=== PATIENT | female | born 1980 | race Caucasian/White ===

== ENCOUNTER 2016-11-16 11:02 | Emergency (ER) | payer MEDICAID ==
[2016-11-16 11:10] VITALS: TEMP 98.1; O2SAT 100
[2016-11-16 12:47] LABS: URINE BILIRUBIN NEGATIVE (NEGATIVE); URINE BLOOD 2+ (NEGATIVE); URINE COLOR Straw (YELLOW); URINE GLUCOSE (UA) NORMAL (Normal); URINE KETONE NEGATIVE (NEGATIVE); URINE LEUKOCYTE ESTERASE NEG Leu/uL (Negative); URINE PROTEIN NEGATIVE (NEGATIVE); URINE UROBILINOGEN NORMAL mg/dL (0.2-1.0); WBC URINE 2 /hpf (0-5)
[2016-11-16 12:48] LABS: RBC URINE 3 /hpf (0-3)
--- NOTE | 2016-11-16 13:04 | C.PDOC ---
History Of Present Illness 36-year-old female presents to the emergency department with complaints of suprapubic pain and dysuria x1 week. She states the pain radiates into HER vagina. Patient denies vaginal bleeding/discharge, vomiting/diarrhea, fever. Patient also denies possiblity of , has not taken test. Time Seen by Provider: 11/16/16 11:11 Chief Complaint (Nursing): Female Genitourinary History Per: Patient History/Exam Limitations: no limitations Onset/Duration Of Symptoms: Days Current Symptoms Are (Timing): Still Present Severity: Mild Past Medical History Reviewed: Historical Data, Nursing Documentation, Vital Signs Vital Signs: Last Vital Signs Temp 98.1 F 11/16/16 11:10 Pulse 74 11/16/16 14:23 Resp 20 11/16/16 14:23 BP 118/72 11/16/16 14:23 Pulse Ox 100 11/19/16 17:58 - Medical History PMH: Hyperthyroidism Family History: States: No Known Family Hx - Social History Hx Alcohol Use: No Hx Substance Use: No - Immunization History Hx Tetanus Toxoid Vaccination: No Hx Influenza Vaccination: No Hx Pneumococcal Vaccination: No Review Of Systems Except As Marked, All Systems Reviewed And Found Negative. Constitutional: Negative for: Fever, Chills Cardiovascular: Negative for: Chest Pain, Palpitations Respiratory: Negative for: Cough, Shortness of Breath Gastrointestinal: Positive for: Abdominal Pain. Negative for: Nausea, Vomiting , Diarrhea Genitourinary: Positive for: Dysuria. Negative for: Hematuria, Vaginal Discharge, Vaginal Bleeding, Pelvic Pain Musculoskeletal: Negative for: Back Pain Skin: Negative for: Rash Physical Exam - Physical Exam Appears: Well, Non-toxic, No Acute Distress Skin: Warm, Dry, No Rash Head: Normacephalic Eye(s): bilateral: Normal Inspection Oral Mucosa: Moist Neck: Normal, Normal ROM Cardiovascular: Rhythm Regular Respiratory: Normal Breath Sounds, No Rales, No Rhonchi, No Wheezing Gastrointestinal/Abdominal: Bowel Sounds, Soft, Tenderness (mild, suprapubic TTP ), No Distention, No Guarding, No Rebound Back: No CVA Tenderness Pelvic: Normal External Exam, Normal Bimanual Exam, No Vaginal Bleeding, Vaginal Discharge (mild amount thick white cottage cheese-like discharge), No Cervical Motion Tenderness, No Cervix Open, No Adnexal Tenderness, No Tender Uterus Extremity: Normal ROM Neurological/Psych: Oriented x3 ED Course And Treatment O2 Sat by Pulse Oximetry: 100 (ra) Pulse Ox Interpretation: Normal Progress Note: Urine Culture, UA and HCG ordered and reviewed. Patient treated with PO Tylenol. Reevaluation Time: 13:40 Reassessment Condition: Improved (Patient reassessed, is resting comfortably, in no current pain/distress. Pelvic exam suspicious for canidida vs BV - both Diflucan and Flagyl Rxs given to patient. Chlamydia/gonorrhea swab sent and pending. Patient instructed to follow up with wrapping checker within 1 week, and understands she should return to ED if symptoms worsen. Patient to be called by me if swab (+).) Disposition Counseled Patient/Family Regarding: Diagnosis, Need For Followup, Rx Given - Disposition Referrals: Lian Love MD [Staff Provider] - Disposition: HOME/ ROUTINE Disposition Time: 13:40 Condition: STABLE Additional Instructions: SEGUIMIENTO CON OLSON MDICO O CLNICA EN 1-2 TRIPLETT NO SEX X 1 SEMANA USE MEDICAMENTOS SEGN LO DIRIGIDO DEVUELVA A LA CHUYITA DE EMERGENCIA SI LOS SNTOMAS EMPEORARAN Prescriptions: Fluconazole [Diflucan] 150 mg PO DAILY #2 tab metroNIDAZOLE [Flagyl] 500 mg PO BID #14 tab Instructions: Vaginal Discharge (ED), Vulvovaginal Candidiasis (ED) Print Language: MOHAWK - POA Present On Arrival: None - Clinical Impression Clinical Impression: Vaginal discharge, Candidiasis, vagina - Scribe Statement The provider has reviewed the documentation as recorded by the Michell Fishman All medical record entries made by the Scribe were at my direction and personally dictated by me. I have reviewed the chart and agree that the record accurately reflects my personal performance of the history, physical exam, medical decision making, and the department course for this patient. I have also personally directed, reviewed, and agree with the discharge instructions and disposition.
[2016-11-16] MEDS ORDERED: cefTRIAXone (Rocephin) 250 mg Inj IM STA (13:19)
[2016-11-16 14:23] VITALS: BP 118/72; PULSE 74; RESP 20
== END 2016-11-16 14:23 | disposition home or self-care (01) ==
LOC: C.ER 11:02
DX: B37.3 Candidiasis of vulva and vagina (principal)
CPT/HCPCS: 81001; 84703; 87086; 87491; 87591; 96372; 99284; J0696

== ENCOUNTER 2017-03-13 09:34 | Day surgery (SDC) | payer MEDICAID ==
[2017-03-12 08:09] VITALS: BMI 21.8
[2017-03-13] MEDS ORDERED: Lactated Ringer's 1,000 ML IV ONE (12:20)
[2017-03-13] MEDS ORDERED: cefOXitin IV 2 gm in Dextrose 2 GM/50 ML BAG IVPB ONE (12:27)
[2017-03-13] MEDS ORDERED: Midazolam 2 MG/2 ML VIAL ONE (12:30)
[2017-03-13] MEDS ORDERED: Propofol 10 mg/ml Inj (20 ML) ONE (12:30)
[2017-03-13] MEDS ORDERED: Lidocaine Hydrochloride 5 ML INJ ONE (12:56)
[2017-03-13] MEDS ORDERED: HYDROmorphone 0.5 mg/0.5 ml ISec IVP PRN (13:11)
--- NOTE | 2017-03-13 13:12 | PCM.SURG1 ---
Surgeon's Initial Post Op Note - Surgeon's Notes Surgeon: Dr Phipps Epic Cadence Analyst: Rajiv Adams- Jessica Quarles Type of Anesthesia: General Endo Anesthesia Administered By: LISA Miles supervised by Dr Rosado Pre-Operative Diagnosis: Same as above,. Multiple submucous fibroid nodules Operative Findings: 10wk sized anteverted uterus with hyperplastic endometrial tissue. There were multiple submucous fibroid nodules on both anterior and posterior surfaces of the endometrium. IVF- 900mls. EBL- 30mls. Urine output - 30mls Post-Operative Diagnosis: Same as above,. Multiple Submucous fibroid nodules Operation Performed: D and c Hysteroscopy Specimen/Specimens Removed: Endometrial and endocervical Currretings Estimated Blood Loss: EBL {In ML}: 30 Post-Op Condition: Good Date of Surgery/Procedure: 03/13/17 Time of Surgery/Procedure: 13:12
[2017-03-13] MEDS ORDERED: Lactated Ringer's 500 ML IV ONE (14:00)
[2017-03-13 14:58] VITALS: BP 110/70; PULSE 79; RESP 18; TEMP 99.1; O2SAT 99
--- NOTE | 2017-03-16 07:22 | OP ---
PREOPERATIVE DIAGNOSIS: A 36-year-old female with endometrial polyp, found on endometrial biopsy. POSTOPERATIVE DIAGNOSIS: A 36-year-old female with endometrial polyp, found on endometrial biopsy. PROCEDURE: D and C, and hysteroscopy. SURGEON: Patrice Phipps MD. ACETYLENE OPERATOR: Medical student, Josemanuel Cuevas. Industrial Twisting Machine Operator remained with the surgery throughout its entire length. TYPE OF ANESTHESIA: General endotracheal. ANESTHESIA ADMINISTERED BY: Ginger GONZALEZ. Supervised by Chucky Baron MD. FINDINGS: A 10-week sized anteverted uterus with hyperplastic endometrial tissue observed with a hysteroscope. There were multiple submucous fibroid nodules on both the anterior and posterior surfaces of the endometrium. IV FLUID INTAKE: 900 mL. ESTIMATED BLOOD LOSS: 80 mL. URINE OUTPUT: About 30 mL. COMPLICATIONS: There were no complications. SPECIMEN: Samples obtained are endometrial and endocervical curettings. DESCRIPTION OF PROCEDURE: After obtaining informed consent, the patient was sent to the OR with IV running. The patient was placed in the supine position on the OR table and after adequate general anesthesia was put in a dorsal lithotomy position. The patient was then prepped and draped in the usual sterile fashion. The urinary catheter was drained with a straight catheter with output of about 30 mL of clear urine. Posterior wall of the vagina was depressed using a weighted speculum. Anterior wall elevated with an L-shaped retractor to expose the cervix. The anterior wall of the cervix was grasped with a single-tooth tenaculum. The uterus was then sounded to a depth of 10 cm. The cervical canal was dilated using Hegar's dilator to about 8 mm dilatation. The hysteroscope was then introduced into the uterine cavity with the above-noted finding. Pictures were obtained of hysteroscopy, and when the hysteroscopy had been completed, endometrial and endocervical curettings were done. The tissue obtained from both areas were sent for histopathology. All instruments were removed from the uterus and the vagina after the procedure. Hemostasis was observed, and the patient was replaced in the supine position. The patient was then sent to the recovery room awake and in stable condition. All counts were correct x3. Patrice Phipps MD [facility]
== END 2017-03-13 15:36 | disposition home or self-care (01) ==
LOC: C.SDS 09:34
PROVIDERS: ATTEND Obstetrics & Gynecology
DX: N84.0 Polyp of corpus uteri (principal); N92.0 Excessive and frequent menstruation with regular cycle
CPT/HCPCS: 36415; 58558; 84702; 88305; J0694; J1170; J2210; J2250; J2704; J3010; J7120

== ENCOUNTER 2017-04-10 10:30 | Inpatient (IN) | payer MEDICAID ==
[2017-03-12 08:08] VITALS: BMI 21.8
[2017-04-11] MEDS ORDERED: Lactated Ringer's 1,000 ML IV ONE ×5 (12:41→15:51)
[2017-04-11] MEDS ORDERED: Midazolam 2 MG/2 ML VIAL ONE (13:05)
[2017-04-11] MEDS ORDERED: Propofol 10 mg/ml Inj (20 ML) ONE (13:05)
[2017-04-11] MEDS ORDERED: Rocuronium 10 mg/ml (5 ml) ONE (13:07)
[2017-04-11] MEDS: cefOXitin IV 2 gm in Dextrose 2 GM/50 ML BAG IVPB ONE ×2 (13:12→13:45)
[2017-04-11] MEDS ORDERED: Lidocaine 1% Inj (20ml) ONE (14:25)
[2017-04-11] MEDS ORDERED: Bupivacaine HCl 0.5% PF (10 ml) Inj ONE (14:25)
[2017-04-11] MEDS ORDERED: Morphine 4 MG/ML VIAL ONE (14:27)
[2017-04-11] MEDS ORDERED: Neostigmine Methylsulfate 3mg/3ml Syringe IV ONE (15:22)
[2017-04-11] MEDS ORDERED: Lactated Ringer's 1,000 ML IV SCH (16:00)
[2017-04-11] MEDS ORDERED: BUPIVACAINE 0.125%/0.9% NACL 600 ML IJ ONE (16:00)
[2017-04-11] MEDS: HYDROmorphone 0.5 mg/0.5 ml ISec IVP PRN ×3 (16:09→17:32)
[2017-04-11] MEDS ORDERED: HYDROmorphone 0.5 mg/0.5 ml ISec ONE (17:32)
[2017-04-11] MEDS ORDERED: Morphine Monoject Barrel PCA 1mg/ml IV PRN (18:19)
[2017-04-12] MEDS ORDERED: Oxycodone/Acetaminophen 5/325 mg Tab PO PRN (06:49)
--- NOTE | 2017-04-12 07:53 | CP.PCM.PN ---
Subjective - Date & Time of Evaluation Date of Evaluation: 04/12/17 Time of Evaluation: 07:30 - Subjective Subjective: CANVAS CUTTER HAND Progress Note Patient seen and examined at bedside. Per nursing no acute events overnight. Patient is doing well, pain is controlled. Duran out this am, urinating without difficulty. Ambulating and tolerating diet. Passing flatus, no BM. Reports having occasional dizziness, no other complaints at this time. Objective - Vital Signs/Intake and Output Vital Signs (last 24 hours): Temp Pulse Resp BP Pulse Ox 98.7 F 86 20 112/70 100 04/11/17 23:15 04/11/17 23:15 04/11/17 23:15 04/11/17 23:15 04/11/17 23:15 Intake and Output: 04/12/17 04/12/17 06:59 18:59 Intake Total 700 Output Total 4300 Balance -3600 - Medications Medications: Current Medications BUPIVACAINE 0.125%/0.9% NACL (Bupivacaine-Ns 0.125% On-Q Die Repairer Trimmer Dies) 600 mls @ 4 mls/ hr IJ ONCE ONE Stop: 04/17/17 21:59 Last Admin: 04/11/17 16:30 Dose: 0 mls Lactated Ringer's (Lactated Ringer's) 1,000 mls @ 125 mls/hr IV .Q8H JENNIFFER Ibuprofen (Motrin Tab) 600 mg PO Q6H PRN PRN Reason: Pain, Mild (1-3) Oxycodone/Acetaminophen (Percocet 5/325 Mg Tab) 1 tab PO Q4 PRN PRN Reason: Pain, moderate (4-7) Stop: 04/14/17 15:52 Oxycodone/Acetaminophen (Percocet 5/325 Mg Tab) 1 tab PO Q4H PRN PRN Reason: Pain, moderate (4-7) Stop: 04/15/17 06:50 - Constitutional Appears: Well, No Acute Distress - Head Exam Head Exam: ATRAUMATIC, NORMAL INSPECTION - Eye Exam Eye Exam: EOMI, Normal appearance Pupil Exam: PERRL - ENT Exam ENT Exam: Mucous Membranes Moist - Neck Exam Neck Exam: Full ROM - Respiratory Exam Respiratory Exam: Clear to Ausculation Bilateral, NORMAL BREATHING PATTERN. absent: Rales, Rhonchi, Wheezes Additional comments: ISS at the bedside - Cardiovascular Exam Cardiovascular Exam: REGULAR RHYTHM, +S1, +S2 - GI/Abdominal Exam GI & Abdominal Exam: Soft, Tenderness, Normal Bowel Sounds. absent: Guarding, Rigid Additional comments: On-Q ball in place Dressing c/d/i - Extremities Exam Extremities Exam: Normal Inspection. absent: Calf Tenderness - Back Exam Back Exam: NORMAL INSPECTION - Neurological Exam Neurological Exam: Alert, Awake, Oriented x3 - Psychiatric Exam Psychiatric exam: Normal Affect, Normal Mood - Skin Skin Exam: Dry, Normal Color, Warm Assessment and Plan - Assessment and Plan (Free Text) Assessment: 36 yo female s/p ALAN with B/L salpingectomy POD#1 Plan: 1. Stable, afebrile 2. F/U am CBC 3. Advance diet as tolerated 4. Encourage ambulation and hydration 5. Encourage ISS use 6. Pain control prn 7. Continue routine post op care 8. Anticipate D/C home tomorrow 9. Plan d/w attending Rachana Rodarte DO PGY-1
[2017-04-12 08:54] LABS: HEMATOCRIT 35.2 % (34.0-47.0); MEAN CELL VOLUME 81.4 fL (81.0-99.0); MEAN CORPUSCULAR HEMOGLOBIN 27.2 pg (27.0-31.0); MEAN CORPUSCULAR HGB CONC 33.4 g/dL (33.0-37.0); MEAN PLATELET VOLUME 10.1 fL (7.2-11.7); RED CELL DISTRIBUTION WIDTH 17.8 % (11.5-14.5); WHITE BLOOD COUNT 12.7 K/uL (4.8-10.8)
[2017-04-12] MEDS: Oxycodone/Acetaminophen 5/325 mg Tab PO PRN ×2 (09:50→14:26)
--- NOTE | 2017-04-12 14:35 | PCM.SURG1 ---
Surgeon's Initial Post Op Note - Surgeon's Notes Surgeon: Dr Phipps Studio Camera Operator: Tyesha Blanco( FP Resident) Type of Anesthesia: General Endo Anesthesia Administered By: LISA Lora supervised by Dr Ari Soriano Pre-Operative Diagnosis: Complex atypical Endometrial Hyperplasia Operative Findings: 6 week Sized anteverted uterus with normal appearing fallopian tubes and ovaries. Evidence of tubal ligation bilaterally. IVF Intake - 1000mls. EBL- 100mls. Urine Output- 200mls Post-Operative Diagnosis: Same as preop diagnosis Operation Performed: Total Abdomoinal Hysterectomy with bilateral salpingectomy Specimen/Specimens Removed: Uterus with cervix and bilateral fallopian tubes Estimated Blood Loss: EBL {In ML}: 100 Post-Op Condition: Good Date of Surgery/Procedure: 04/11/17 Time of Surgery/Procedure: 15:38
[2017-04-12] MEDS: Simethicone 80 mg Chewtab PO SCH ×2 (15:13→18:32)
[2017-04-12 16:07] VITALS: BP 110/66; PULSE 72; RESP 18; TEMP 98.3; O2SAT 100
--- NOTE | 2017-04-14 15:26 | CP.PCM.DIS ---
Provider - Provider Date of Admission: 04/11/17 11:49 Attending physician: Patrice Phipps Time Spent in preparation of Discharge (in minutes): 31 Hospital Course - Lab Results Lab Results: Most Recent Lab Values WBC 12.7 K/uL (4.8-10.8) H D 04/12/17 08:34 RBC 4.32 Mil/uL (3.80-5.20) 04/12/17 08:34 Hgb 11.7 g/dL (11.0-16.0) 04/12/17 08:34 Hct 35.2 % (34.0-47.0) 04/12/17 08:34 MCV 81.4 fL (81.0-99.0) 04/12/17 08:34 MCH 27.2 pg (27.0-31.0) 04/12/17 08:34 MCHC 33.4 g/dL (33.0-37.0) 04/12/17 08:34 RDW 17.8 % (11.5-14.5) H 04/12/17 08:34 Plt Count 216 K/uL (130-400) 04/12/17 08:34 MPV 10.1 fL (7.2-11.7) 04/12/17 08:34 Blood Type A POSITIVE 04/11/17 12:39 Antibody Screen Negative 04/11/17 12:39 - Hospital Course Hospital Course: Patient is a 36 year old female with past medical hx of Complex atypical Endometrial Hyperplasia presented to [facility] for scheduled for Total Abdominal Hysterectomy with B/L Salpingectomy. Patient was pre-oped and consented. Tolerated the procedure well. Patient was monitored post operatively. Pain was controlled, patient was ambulating and tolerating diet. Patient was also passing flatus and urinating without difficulty. Patient desired to go home on POD#1 as she was recovering well. On-Q ball was removed at the bedside. Catheter sites were dressed with steristrips. Patient was given prescriptions for Motrin and Percocet. Patient to follow up with Dr Phipps within 10-14 days. Patient was medically stable prior to discharge. Discharge Exam - Head Exam Head Exam: ATRAUMATIC, NORMAL INSPECTION - Eye Exam Eye Exam: EOMI, Normal appearance Pupil Exam: NORMAL ACCOMODATION, PERRL - ENT Exam ENT Exam: Mucous Membranes Moist - Respiratory Exam Respiratory Exam: Clear to PA & Lateral, UNREMARKABLE. absent: Rales, Rhonchi, Wheezes - Cardiovascular Exam Cardiovascular Exam: REGULAR RHYTHM, +S1, +S2 - GI/Abdominal Exam GI & Abdominal Exam: Normal Bowel Sounds, Soft, Tenderness. absent: Guarding, Rigid Additional comments: Incision c/d/i with steristrips - Extremities Exam Extremities exam: full ROM, normal inspection - Back Exam Back exam: NORMAL INSPECTION - Neurological Exam Neurological exam: Alert, Oriented x3 - Psychiatric Exam Psychiatric exam: Normal Affect, Normal Mood - Skin Skin Exam: Dry, Normal Color, Warm Discharge Plan - Discharge Medications Prescriptions: Ibuprofen [Motrin Tab] 600 mg PO Q6H PRN #20 tab PRN Reason: Pain, Mild (1-3) oxyCODONE/Acetaminophen [Percocet 5/325 mg Tab] 1 tab PO Q4H PRN #20 tab PRN Reason: Pain, Moderate (4-7) - Follow Up Plan Condition: GOOD Disposition: HOME/ ROUTINE Instructions: Endometriosis (DC), Endometriosis (GEN) Additional Instructions: Pelvic rest x 6 weeks, percocet and motrin prn pain, f/u with office within 2 weeks Referrals: Patrice Phipps [Staff Provider] -
--- NOTE | 2017-04-15 05:33 | OP ---
PROCEDURE DATE: 04/11/2017 PREOPERATIVE DIAGNOSIS: A 36-year-old female with an endometrial polyp with complex, atypical endometrial hyperplasia. POSTOPERATIVE DIAGNOSIS: A 36-year-old female with an endometrial polyp with complex, atypical endometrial hyperplasia. PROCEDURE DONE: A total abdominal hysterectomy with bilateral salpingectomy. SURGEON: Dr. Phipps. ASSISTANTS: Dr. Дмитрий Calles, a family practice resident. Assistants to this procedure were needed for exposure of tissues and help in the conduct of the surgery. The assistants remained with the surgery throughout its entire length. TYPE OF ANESTHESIA: General endotracheal. ANESTHESIA ADMINISTERED BY: Yaneth GONZALEZ, supervised by Dr. Dacosta. FINDINGS: A 6- to 8-week size anteverted uterus with normal-appearing bilateral ovaries and tubes. There was evidence of tubal ligation bilaterally. IV FLUID INTAKE: 1000 mL. ESTIMATED BLOOD LOSS: 100 mL. URINE OUTPUT: 200 mL of clear urine. COMPLICATIONS: There were no complications. SPECIMEN SENT FOR PATHOLOGY: Uterus with the cervix and the bilateral fallopian tubes. DESCRIPTION OF PROCEDURE: After obtaining informed consent, the patient was taken to the OR with IV running and Duran catheter in place. The patient was placed in the supine position on the OR table, and after adequate general anesthesia, the patient was prepped and draped in the usual sterile fashion. A Pfannenstiel skin incision was made about 2.5 cm from the pubic symphysis and the incision was carried through the subcutaneous tissues using a Bovie device until the rectus fascia was identified. A transverse incision was made in the rectus fascia using the Bovie device and was extended to both sides by means of the blunt fashion and Naqvi scissors. The rectus fascia was lifted off the rectus muscles, both superiorly and inferiorly, by means of a sharp dissection with Naqvi scissors and blunt dissection. The rectus muscle was in the midline to expose the peritoneum, which was picked up and tented between 2 Georgina clamps and sharply entered with Metzenbaum scissors. Once the abdominal cavity was entered, the above findings were noted. The bowels were packed away using wet laparotomy pad after inserting an O'Kermit-O'Solorio retractor. The uterus was held in place using the uterine corkscrew. The round ligament on both sides was pressed, cauterized and transected using the LigaSure device riding. A bladder flap was developed by utilizing the bladder peritoneum along the bladder reflection on the anterior surface of the cervix. The bladder was then pushed using sponge stick away from the anterior surface of the cervix. The attachment of the ovarian ligament and the tubes to the corner on both sides was grasped with the LigaSure device, cauterized and transected bilaterally. Once this had been done, skeletonization of the right uterine vessels was done. The uterine vessels were grasped at the level of the internal os using the LigaSure device. This was cauterized in 2 places and transected. Then, using the LigaSure device, the tissues along the cervix to the vaginal vault were grasped between the LigaSure device. This was done until the right vaginal vault was entered. The same procedure was done on the left side. The vaginal cuff at this point was held with Ray forceps and the uterus with the cervix was amputated from the vaginal vault using the Shelli scissors. The uterus was given to the nurse to be sent for histopathology. Both corners of the vaginal cuff were secured with Vicryl 0 sutures. Then, the rest of the vaginal vault was closed using a Vicryl 0 [id number] suture until hemostasis was achieved. Once the procedure had been concluded, the ovary on the left side was held with a Anza and the remnant of the left fallopian tube was identified. The round ligament at that portion was grasped with LigaSure device, cauterized and transected. The same procedure was done on the right adnexa to excise the right fallopian tube. These were sent for pathological evaluation. Once the procedure had been completed, irrigation of the pelvis with warm saline was conducted. Once hemostasis was assured and all instruments and laparotomy pads had been removed from the abdomen, attention was turned to the anterior abdominal wall which was closed in layers with 2-0 Vicryl for the peritoneum and rectus muscles, the rectus fascia was reapproximated using 0 Vicryl, the subcutaneous tissue was brought together by means of #2-0 plain catgut and the skin was closed in a subcuticular fashion using #4-0 Vicryl. All counts of instruments, laparotomy pads and needles used were correct x3. The patient was sent to the recovery room awake and in stable condition Patrice Phipps MD [facility] # [id number]
== END 2017-04-12 18:55 | disposition home or self-care (01) | DRG 359 ==
LOC: C.9S 04-11 11:49 → C.6T 04-11 19:21
PROVIDERS: ADMIT Obstetrics & Gynecology; ATTEND Obstetrics & Gynecology
PROC: 0UT70ZZ Resection of Bilateral Fallopian Tubes, Open Approach (ICD-10-PCS; 2017-04-11)
PROC: 0UTC0ZZ Resection of Cervix, Open Approach (ICD-10-PCS; 2017-04-11)
PROC: 0UT90ZZ Resection of Uterus, Open Approach (ICD-10-PCS; principal; 2017-04-11 13:30)
DX: N85.02 Endometrial intraepithelial neoplasia [EIN] (principal); N84.0 Polyp of corpus uteri; N92.0 Excessive and frequent menstruation with regular cycle; Z98.51 Tubal ligation status